=== PATIENT | male | born 1965 | race Caucasian/White ===

== ENCOUNTER 2020-11-23 10:32 | Emergency (ER) | payer SELFPAY ==
[2020-11-23 10:34] VITALS: BP 133/82; PULSE 62; RESP 16; TEMP 36.8; O2SAT 95; BMI 28.3
--- NOTE | 2020-11-23 10:44 | ECG_ITS ---
APPROVED REPORT Exam: Resting ECG HR:61 bpm ECG Measurements Heart Rate 61 AXES AR 128 P 52 QRSd 124 QRS -13 QT 420 T 48 QTc 422 Conclusion Normal sinus rhythm Right bundle branch block Abnormal ECG Electronically signed by : Nelson Marvin, 11/23/2020 22:09:03
--- NOTE | 2020-11-23 10:58 | XR_ITS ---
PROCEDURE: XR CHEST PORTABLE CLINICAL HISTORY: chest pain COMPARISON: No exams were available for comparison FINDINGS: Median sternotomy and mediastinal clips are noted. Aortic valve replacement. The cardiomediastinal silhouette and pulmonary vascularity are within normal limits. Background of minor chronic interstitial changes are noted. No lobar consolidation, pleural effusions or pneumothorax. No acute bony abnormalities. IMPRESSION: Status post CABG. Bilateral minor chronic interstitial changes. Dictated by: Lor Huitron 11/23/2020 11:45 Lor Huitron in OV 11/23/2020 11:45
[2020-11-23 11:05] LABS: Basophils % 0.6 % (0.1-2.0); Chloride 104 mmol/L (98-107); Eosinophils # 0.1 K/mm3 (0.0-0.4); Eosinophils % 1.6 % (0.1-12.0); Hematocrit 44.8 % (42.0-52.0); Hemoglobin 15.5 g/dL (14.1-18.0); Lymphocytes # 2.3 K/mm3 (0.7-4.5); Lymphocytes % 34.2 % (10-50); Mean Corpuscular HGB Conc 34.7 g/dL (31.8-35.4); Mean Corpuscular Hemoglobin 28.6 pg (27.0-31.2); Mean Corpuscular Volume 82.6 fl (80-94); Mean Platelet Volume 8.6 fl (7.4-10.4); Monocytes # 0.4 K/mm3 (0.1-1.0); Monocytes % 5.8 % (1.7-9.3); Neutrophils # 3.9 K/mm3 (1.8-7.8); Neutrophils % 57.7 % (37.0-80.0); Platelet Count 153 K/mm3 (142-424); Red Blood Count 5.42 M/mm3 (4.60-6.20); Red Cell Distribution Width 13.8 % (11.5-17.5); Sodium 140 mmol/L (136-145); White Blood Count 6.7 K/mm3 (4.8-10.8)
[2020-11-23 11:06] LABS: Potassium 4.3 mmoL/L (3.5-5.1)
[2020-11-23 11:08] LABS: Anion Gap 12.3 mEq/L (5-15); Blood Urea Nitrogen 14 mg/dl (9-20); Calcium 9.3 mg/dl (8.4-10.2); Carbon Dioxide 28 mmol/L (22.0-30.0); Creatinine Clearance Estimated 122 mL/min (50-200); Estimated Glomerular Filt Rate 117 ml/min (>60); GFR (African American) 142 ML/MIN (>60); Glucose 93 mg/dl (74-100)
--- NOTE | 2020-11-23 11:16 | CA_ITS ---
APPROVED REPORT EXAM: Comprehensive 2D, Doppler, and color-flow Echocardiogram Automated Logistics Specialist: Dodie Nguyen, RCS, RVS Ht: 5 ft 3 in Wt: 160lbs BSA: 1.76 BP: 122/80 mmHg Indications: Palpitations, cp-1 week ago, Hx-OHS- MVReplacement Boyd 27mm, TV medtronic ring -2014 2D Dimensions IVSd 0.98 cm LVEF (Visual) 63.00 % PWd 1.15 cm LA Volume 64.70 mL LVDd 4.56 cm LA Volume Index 36.80 mL/m2 (M/F) 16-34 LVDs 3.01 cm Left Atrium 3.80 cm LVOT 1.78 cm (M/F) 1.5-2.5 M-Mode Dimensions LA Diam 3.56 cm (1.9-4.0) Ao Diam 3.42 cm (2.0-3.7) TAPSE 1.75 (<1.7) LV Diastology E Decel Time 310.00 (160-240 msec) E/A Ratio 1.55 MED E' 7.30 (< 7 cm/sec) MED A' 5.70 cm/s E'/MED E' Ratio 24.93 (>14) LAT E' 8.40 (<10 cm/sec) LAT A' 5.80 cm/s E/LAT E' Ratio 21.67 (>14) Pulm Vein s 49.00 cm/sec Aortic Valve LVOT Max 130.00 (70-110 cm/s) LVOT VTI 26.81 cm AoV Peak Ghassan. 147.00 (50-130 cm/s) AO Peak GR. 8.60 mmHg AO Mean GR. 4.30 (<5 mmHg) AO VTI 34.44 (18-25 cm) NIKKI (VTI) 1.94 (2.5-4.5 cm2) Mitral Valve MV A Velocity 117.00 (40-130 cm/s) E/A Ratio 1.55 MV Decel. Time 310.00 (160-240 ms) Pulmonary Valve PV Peak Velocity 70.00 (50-150 cm/s) DC End VMAX 161.00 cm/s Tricuspid Valve TR P. Velocity 164.00 cm/s RAP Estimate 10.00 mmHg RVSP 20.70 mmHg Left Ventricle Left atrium is mildly enlarged, left ventricle is normal size, visually estimated ejection fraction 55% with no regional wall motion abnormality. Diastolic parameters are inconclusive. Right Ventricle Right atrium and right ventricle mildly enlarged with normal contractility. Aortic Valve Aortic valve is minimally thickened and fibrosed, there is no aortic stenosis or aortic insufficiency. Mitral Valve There is bioprosthetic valve noted in the mitral position, the valve is well-seated, there is no mitral regurgitation, the mean gradient across valve is 3.9 mmHg, pressure half-time was not obtained in this study. Tricuspid Valve There is tricuspid annuloplasty ring present in the tricuspid position, there is no tricuspid inflow obstruction or tricuspid regurgitation. Pulmonic Valve Pulmonic valve is poorly visualized. Great Vessels Aortic root is normal size. Pericardium No significant pericardial effusion noted. Conclusion 1. Biatrial enlargement, normal left ventricular size, visually estimated ejection fraction 55% with no regional wall motion abnormality, diastolic parameters are inconclusive. 2. Bioprosthetic valve in the mitral position valve is well-seated, there is no significant mitral regurgitation, mean gradient across valve is 3.9 mmHg, pressure half-time was not recorded in the study to calculate valve area. 3. Normal functioning tricuspid annuloplasty ring. 4. No significant pericardial effusion noted. Electronically signed by : Gustavo Combs, 11/23/2020 22:04:24
--- NOTE | 2020-11-23 11:25 | HMH.EDGENADL ---
ED Disposition Clinical Impression: Weakness Disposition: Home, Self-Care Condition on Discharge: Good Referrals: Provider,Referral, MD [Primary Care Provider] - - Critical Care Critical Care Time: No Attestation: On , the high probability of a clinically significant, sudden or life threatening deterioration of the following system(s) required my full and direct attention, intervention and personal management. The time I documented below is in addition to time spent performing reported procedures but includes the following listed in this critical care notation. Medical Decision Making - Medical Records Medical records reviewed: Yes: I reviewed the patient's medical records. - Mohamud Inquiry Pt receiving controlled substance: No Vital Signs: 11/23/20 10:34 11/23/20 11:43 Temperature 98.3 F Temperature Source Oral Pulse Rate 64 Pulse Rate [Left] 62 Respiratory Rate 16 Blood Pressure 122/80 Blood Pressure [Right Arm] 133/82 Blood Pressure Mean 86 Blood Pressure Mean [Right Arm] 99 Blood Pressure Source [Right Arm] Automatic Cuff 02 Sat by Pulse Oximetry 95 96 Oxygen Delivery Method Room Air - Lab Data Lab Results 11/23/20 10:50: WBC 6.7, RBC 5.42, Hgb 15.5, Hct 44.8, MCV 82.6, MCH 28.6, MCHC 34.7, RDW 13.8, Plt Count 153, MPV 8.6, Neut % (Auto) 57.7, Lymph % (Auto) 34.2, [place] % (Auto) 5.8, Eos % (Auto) 1.6, Baso % (Auto) 0.6, Neut # (Auto) 3.9, Lymph # (Auto) 2.3, [place] # (Auto) 0.4, Eos # (Auto) 0.1, Baso # (Auto) 0.0 11/23/20 10:50: Sodium 140, Potassium 4.3, Chloride 104, Carbon Dioxide 28, Anion Gap 12.3, BUN 14, Creatinine 0.70, Estimated Creat Clear 122, Estimated GFR 117, Est GFR ( Amer) 142, Glucose 93, Calcium 9.3, Troponin I < 0.01 Result diagrams: 11/23/20 10:50 11/23/20 10:50 Orders (Tests/Meds): ORDERS Category Date Time Status C-Reactive Protein Stat Lab 11/23/20 14:06 Received Erythrocyte Sedimentation Rate Stat Lab 11/23/20 10:50 Received Troponin I Q3H Lab 11/23/20 14:00 Received Troponin I Q3H Lab 11/23/20 17:00 Ordered Blood Culture Stat Micro 11/23/20 14:19 Received Medical Decision Narrative: Patient to the ED today for further evaluation of vague symptoms of weakness. Differential diagnosis includes valve failure, ACS, pneumonia, electrolyte normality, dehydration, anemia. Patient is well-appearing on examination in no acute distress with stable vital signs, takes many herbal supplements the names of which she is not able to give most of. Takes metoprolol and aspirin regularly. Will order CBC, CMP, troponin, chest x-ray for further evaluation of differential above. I will also have our cardiac cath lab radiology technologist perform echocardiography as he could be having mitral regurg or mitral stenosis which could be contributing to his symptoms. Echo has been performed, will have cardiology assess prior to discharge, patient needs more follow-up and he has, as he follows with a PCP up in [place], has not seen them in over a year. Patient has requested to be followed up by a reservations sales agent, we are not able to arrange this for him, but he has a friend contact who he will arrange follow-up with. Spoke with cardiology regarding patient's echo does not have any significant or obvious mitral regurgitation or stenosis. Commended obtaining a CRP and ESR, and blood cultures, which they will follow up in clinic which we will schedule later this week. We have scheduled patient for appointment in cardiology clinic, given instructions on how to arrive to this appointment, patient instructed to return to ED with any new or worsening symptoms including worsening fevers, weakness, chest pain. Is not currently having any chest pain, EKG is without evidence of ischemia. General Adult HPI - General Chief complaint: Chest Pain Stated complaint: fatigue, head pressure Time Seen by Provider: 11/23/20 11:15 Mode of Arrival: Ambulatory Limitations: No Limitations Description of Sy
[2020-11-23 11:27] LABS: Troponin I < 0.01 ng/ml (0.00-0.034)
[2020-11-23 11:43] VITALS: BP 122/80; PULSE 64; O2SAT 96
--- NOTE | 2020-11-23 11:51 | PC.NURSE ---
technical sales manager in room with patient at this time
--- NOTE | 2020-11-23 11:58 | PC.NURSE ---
pt getting echo at this time
--- NOTE | 2020-11-23 12:47 | PC.NURSE ---
notified cardiology office of consult on pt requested per ER . staff states they will notify antolin bassett of consult on pt
--- NOTE | 2020-11-23 13:34 | INFXCTL.NOTE ---
spoke with MAJOR Mcclendon with cardiology and she stated that she has some patients that still need to be seen in clinic today and she will be over to the ED to consult on patient once she finishes.
--- NOTE | 2020-11-23 14:39 | PC.NURSE ---
Spoke with Dr. Melvin Cardiology office and scheduled patient appointment. Patient has upcoming appt on monday at [address] MARTINS
--- NOTE | 2020-11-23 14:41 | PC.NURSE ---
pt sitting up in bed eating at this time
[2020-11-23 14:45] LABS: Troponin I < 0.01 ng/ml (0.00-0.034)
[2020-11-23 15:12] LABS: Erythrocyte Sedimentation Rate 9 mm/hr (0-20)
[2020-11-23 15:20] VITALS: BP 111/76; PULSE 60; RESP 18; TEMP 36.8; O2SAT 95
[2020-11-23 15:40] LABS: C-Reactive Protein 2.5 mg/L (0-4)
== END 2020-11-23 15:20 | disposition home or self-care (01) ==
PROVIDERS: Emergency Provider Student in an Organized Health Care Education/Training Program
DX: R07.9 Chest pain, unspecified (principal); R53.1 Weakness; K21.9 Gastro-esophageal reflux disease without esophagitis; Z95.2 Presence of prosthetic heart valve
CPT/HCPCS: 36415; 71045; 80048; 84484; 85025; 85651; 86140; 87040; 87077; 87186; 93005; 93306; 99283

== ENCOUNTER → 2021-01-08 11:59 | Outpatient (CLI) | payer SELFPAY ==
[2021-01-08 13:11] LABS: NT Pro Brain Natriuretic Pep. 240 pg/mL (0-125)
== END ==
PROVIDERS: Urology; Visit Provider Internal Medicine Cardiovascular Disease
DX: R06.09 Other forms of dyspnea (principal)
CPT/HCPCS: 36415; 83880

== ENCOUNTER → 2021-01-28 12:44 | Outpatient (CLI) | payer SELFPAY ==
[2021-01-28 13:41] LABS: Chloride 102 mmol/L (98-107)
[2021-01-28 13:42] LABS: Potassium 5.5 mmoL/L (3.5-5.1); Sodium 139 mmol/L (136-145)
[2021-01-28 13:44] LABS: Blood Urea Nitrogen 16 mg/dl (9-20); Estimated Glomerular Filt Rate 117 ml/min (>60); GFR (African American) 142 ML/MIN (>60)
[2021-01-28 13:45] LABS: Anion Gap 13.5 mEq/L (5-15); Calcium 9.6 mg/dl (8.4-10.2); Carbon Dioxide 29 mmol/L (22.0-30.0); Glucose 88 mg/dl (74-100)
== END ==
PROVIDERS: Visit Provider Internal Medicine Cardiovascular Disease
DX: K21.9 Gastro-esophageal reflux disease without esophagitis (principal); Z95.2 Presence of prosthetic heart valve; Z98.890 Other specified postprocedural states
CPT/HCPCS: 36415; 80048

== ENCOUNTER → 2021-07-05 10:34 | Outpatient (CLI) | payer SELFPAY ==
--- NOTE | 2021-07-05 | CA_ITS ---
APPROVED REPORT EXAM: Comprehensive 2D, Doppler, and color-flow Echocardiogram Florist: Serenity Daniel RT(R) Ht: 5 ft 3 in Wt: 161lbs BSA: 1.76 BP: 124/75 mmHg Indications: Murmur, HTN, hyperlipidemia, SWENSON, TVR( medtronic ring ) 2014, MVR 2014 (melgoza 27mm) 2D Dimensions LVOT 1.73 cm (M/F) 1.5-2.5 LVEF (Bhatti's) 53.00 % M: 52 - 72 LV Volume 80.80 mL M: 62 - 150 LV Volume Index 45.90 mL/m2 M: 34 - 74 M-Mode Dimensions RVDd 2.40 cm (0.9-2.6) LA Diam 4.10 cm (1.9-4.0) LVDd 4.57 cm (3.5-5.7) Ao Diam 2.49 cm (2.0-3.7) LVDs 3.47 cm (3.5-5.7) IVSd 0.77 cm (0.6-1.1) PWd 0.87 cm (0.6-1.1) EF (Teich) 48.10% FS 24.10% EDV (Teich) 95.90 mL ESV (Teich) 49.80 mL LV Diastology E Decel Time 297.00 (160-240 msec) E/A Ratio 1.0 MED E' 6.40 (< 7 cm/sec) E'/MED E' Ratio 17.80 (>14) LAT E' 7.40 (<10 cm/sec) E/LAT E' Ratio 15.39 (>14) Aortic Valve LVOT Max 104.00 (70-110 cm/s) LVOT VTI 22.39 cm AO VTI 52.84 (18-25 cm) Mitral Valve MV E Max Ghassan. 114.00 (40-130 cm/s) MV A Velocity 115.00 (40-130 cm/s) E/A Ratio 0.99 MV Decel. Time 297.00 (160-240 ms) MV PHT 87.00 ms Left Ventricle Left atrium is mildly enlarged, left ventricle is normal size, mild concentric left ventricular hypertrophy, visually estimated ejection fraction 55% with no regional wall motion abnormality, diastolic parameters are inconclusive. Right Ventricle Right atrium and right ventricle are mildly enlarged with normal contractility. Aortic Valve Aortic valve is minimally thickened and fibrosed, there is no aortic stenosis or significant aortic insufficiency. Mitral Valve Bioprosthetic valve noted in the mitral position valve is well-seated, the mean gradient across the valve is in acceptable range, there is no mitral inflow obstruction no mitral regurgitation. Tricuspid Valve Tricuspid valve has tricuspid annulus ring, there is no significant tricuspid inflow obstruction or tricuspid regurgitation. Pulmonic Valve Pulmonic valve is poorly visualized. Great Vessels Aortic root is normal size. Inferior vena cava is poorly visualized. Pericardium No significant pericardial effusion noted. Conclusion 1. Biatrial enlargement, normal left ventricular size, mild concentric left ventricular hypertrophy, visually estimated ejection fraction 55% with no regional wall motion abnormality, diastolic parameters are inconclusive. 2. Mildly enlarged right ventricle with normal contractility. 3. Normal functioning bioprosthetic valve in the mitral position 4. Normal functioning tricuspid valve ring in tricuspid position. 5. No significant pericardial effusion. 6. Inferior vena cava is poorly visualized. Electronically signed by : Gustavo Combs MD 07/05/2021 18:55:44
--- NOTE | 2021-07-05 | ECG_ITS ---
APPROVED REPORT Exam: Resting ECG HR:64 bpm ECG Measurements Heart Rate 64 AXES OR 132 P 35 QRSd 124 QRS -23 QT 416 T -2 QTc 425 Conclusion SINUS RHYTHM POSSIBLE RIGHT VENTRICULAR CONDUCTION DELAY [RSR (QR) IN V1/V2] ABNORMAL ECG UNCONFIRMED REPORT Electronically signed by : Nelson Marvin MD 07/09/2021 16:13:03
== END ==
PROVIDERS: Visit Provider Family Medicine
DX: I35.9 Nonrheumatic aortic valve disorder, unspecified (principal)
CPT/HCPCS: 93005; 93306

== ENCOUNTER 2021-10-28 11:43 | Inpatient (IN) | payer SELFPAY ==
[2021-10-28] VITALS (27 sets, daily range): BP systolic 96–157; BP diastolic 58–96; PULSE 62–128; RESP 16–26; TEMP 36.4–36.8; O2SAT 93–98; BMI 29.2; BMI 28.3
--- NOTE | 2021-10-28 11:43 | ECG_ITS ---
APPROVED REPORT Exam: Resting ECG HR:128 bpm ECG Measurements Heart Rate 128 AXES QRSd 112 QRS 3 QT 302 T 83 QTc 378 Conclusion ATRIAL FLUTTER/TACHYCARDIA WITH RAPID VENTRICULAR RESPONSE INCOMPLETE RIGHT BUNDLE BRANCH BLOCK [90+ ms QRS DURATION, TERMINAL R IN V1/V2, 40+ ms S IN I/aVL/V4/V5/V6] ST ELEVATION, PROBABLY EARLY REPOLARIZATION [ST ELEVATION WITH NORMALLY INFLECTED T-WAVE] MODERATE ST DEPRESSION [0.05+ mV ST DEPRESSION] ABNORMAL ECG UNCONFIRMED REPORT Electronically signed by : Nelson Marvin MD 10/29/2021 17:32:17
--- NOTE | 2021-10-28 11:48 | XR_ITS ---
FINAL REPORT CLINICAL HISTORY: palpitaions FINDINGS: A single portable view of the chest was obtained. There are postoperative changes from median sternotomy. The heart size and pulmonary vascularity are within normal limits. The mediastinum is within normal limits. No acute pulmonary abnormality is identified. The bony thorax is intact. IMPRESSION: No active cardiopulmonary disease. Reviewed, Interpreted and Dictated by Chino Christopher III, MD Transcribed by Karon Pelayo Authenticated and [facility]
--- NOTE | 2021-10-28 11:52 | HMH.EDCP ---
ED Disposition Clinical Impression: Chest discomfort Atrial flutter Qualifiers: Atrial flutter type: unspecified Qualified Code(s): I48.92 - Unspecified atrial flutter Disposition: Admitted as Observation Condition on Discharge: Good Referrals: Provider,Referral, [Primary Care Provider] - - Critical Care Critical Care Time: Yes Attestation: On , the high probability of a clinically significant, sudden or life threatening deterioration of the following system(s) required my full and direct attention, intervention and personal management. The time I documented below is in addition to time spent performing reported procedures but includes the following listed in this critical care notation. Vital system(s) involved:: Circulatory Failure My critical care processes included: Assessment & monitoring of V/S, Initial and Re-exams, Data Review/Interpretation, Coordinating Care, Medication Orders and management, Documentation Medical Decision Making - Medical Records Medical records reviewed: Yes: I reviewed the patient's medical records. - Mohamud Inquiry Pt receiving controlled substance: No Vital Signs: 10/28/21 11:46 10/28/21 12:04 10/28/21 12:07 Temperature 98.2 F Temperature Source Oral Pulse Rate 126 H 126 H Pulse Rate [Radial] 128 H Respiratory Rate 20 Blood Pressure 116/96 H 127/89 Blood Pressure [Right Arm] 136/94 H Blood Pressure Mean [Right Arm] 108 Blood Pressure Source Automatic Cuff Blood Pressure Position Sitting Blood Pressure Position [Right Arm] Sitting 02 Sat by Pulse Oximetry 98 94 L Oxygen Delivery Method Room Air Room Air 10/28/21 12:16 10/28/21 12:20 10/28/21 12:23 Temperature Temperature Source Pulse Rate 123 H 80 124 H Pulse Rate [Radial] Respiratory Rate 24 Blood Pressure 117/88 106/74 L 110/88 Blood Pressure [Right Arm] Blood Pressure Mean [Right Arm] Blood Pressure Source Blood Pressure Position Sitting Sitting Sitting Blood Pressure Position [Right Arm] 02 Sat by Pulse Oximetry Oxygen Delivery Method 10/28/21 12:27 Temperature Temperature Source Pulse Rate 90 Pulse Rate [Radial] Respiratory Rate Blood Pressure 100/73 L Blood Pressure [Right Arm] Blood Pressure Mean [Right Arm] Blood Pressure Source Blood Pressure Position Sitting Blood Pressure Position [Right Arm] 02 Sat by Pulse Oximetry Oxygen Delivery Method - Lab Data Lab Results 10/28/21 11:47: WBC 7.7, RBC 5.79, Hgb 16.6, Hct 47.2, MCV 81.6, MCH 28.7, MCHC 35.2, RDW 12.7, Plt Count 189, MPV 9.0, Neut % (Auto) 56.1, Lymph % (Auto) 34.5, [place] % (Auto) 7.8, Eos % (Auto) 1.2, Baso % (Auto) 0.5, Neut # (Auto) 4.3, Lymph # (Auto) 2.7, [place] # (Auto) 0.6, Eos # (Auto) 0.1, Baso # (Auto) 0.0 10/28/21 11:47: Sodium 138, Potassium 4.6, Chloride 102, Carbon Dioxide 29, Anion Gap 11.6, BUN 12, Creatinine 0.70, Estimated Creat Clear 125, Estimated GFR 117, Est GFR ( Amer) 141, Glucose 99, Calcium 9.4, Total Bilirubin 0.4, AST 45, ALT 26, Alkaline Phosphatase 55, Troponin I < 0.01, Total Protein 7.9, Albumin 4.4, Globulin 3.5 H, Albumin/Globulin Ratio 1.3 10/28/21 11:54: Sodium 138, Potassium 4.6, Chloride 102, Carbon Dioxide 30, Anion Gap 10.6, BUN 12, Creatinine 0.70, Estimated Creat Clear 125, Estimated GFR 117, Est GFR ( Amer) 141, Glucose 99, Calcium 9.3, Total Bilirubin 0.4, Direct Bilirubin 0.0, Conjugated Bilirubin 0.0, Indirect Bilirubin 0.4, Unconjugated Bilirubin 0.7, AST 42, ALT 24, Alkaline Phosphatase 53, Total Protein 7.8, Albumin 4.3 Result diagrams: 10/28/21 11:47 10/28/21 11:54 Orders (Tests/Meds): ED MEDICATIONS Generic Name Dose Route Start Last Admin Trade Name Freq PRN Reason Stop Dose Admin Diltiazem HCl 100 mg/ Sodium 100 mls @ 5 mls/hr 10/28/21 12:45 10/28/21 12:30 Chloride IV 11/27/21 12:44 5 mls/hr .Q20H TRACEY Administration Protocol Discontinued Medications Generic Name Dose Route Start La
[2021-10-28 12:06] LABS: Alanine Aminotransferase 24 U/L (12-78); Albumin Level 4.3 g/dl (3.5-5.0); Alkaline Phosphatase 53 U/L (38-126); Anion Gap 10.6 mEq/L (5-15); Aspartate Amino Transferase 42 U/L (17-59); Bilirubin,Indirect 0.4 mg/dL (0.0-0.9); Bilirubin,Total 0.4 mg/dl (0.2-1.3); Bilirubin,Unconjugated 0.7 mg/dL (0.0-1.1); Blood Urea Nitrogen 12 mg/dl (9-20); Calcium 9.3 mg/dl (8.4-10.2); Carbon Dioxide 30 mmol/L (22.0-30.0); Chloride 102 mmol/L (98-107); Creatinine Clearance Estimated 125 mL/min (50-200); Estimated Glomerular Filt Rate 117 ml/min (>60); GFR (African American) 141 ML/MIN (>60); Glucose 99 mg/dl (74-100); Potassium 4.6 mmoL/L (3.5-5.1); Sodium 138 mmol/L (136-145); Total Protein,Serum 7.8 g/dl (6.3-8.2)
[2021-10-28 12:07] LABS: Alanine Aminotransferase 26 U/L (12-78); Albumin Level 4.4 g/dl (3.5-5.0); Albumin/Globulin Ratio 1.3 (1.1-1.8); Alkaline Phosphatase 55 U/L (38-126); Anion Gap 11.6 mEq/L (5-15); Aspartate Amino Transferase 45 U/L (17-59); Bilirubin,Total 0.4 mg/dl (0.2-1.3); Blood Urea Nitrogen 12 mg/dl (9-20); Calcium 9.4 mg/dl (8.4-10.2); Carbon Dioxide 29 mmol/L (22.0-30.0); Chloride 102 mmol/L (98-107); Creatinine Clearance Estimated 125 mL/min (50-200); Estimated Glomerular Filt Rate 117 ml/min (>60); GFR (African American) 141 ML/MIN (>60); Globulin 3.5 g/dL (1.3-3.2); Glucose 99 mg/dl (74-100); Potassium 4.6 mmoL/L (3.5-5.1); Sodium 138 mmol/L (136-145); Total Protein,Serum 7.9 g/dl (6.3-8.2)
[2021-10-28 12:22] LABS: Troponin I < 0.01 ng/ml (0.00-0.034)
[2021-10-28 12:23] LABS: Basophils % 0.5 % (0.1-2.0); Eosinophils # 0.1 K/mm3 (0.0-0.4); Eosinophils % 1.2 % (0.1-12.0); Hematocrit 47.2 % (42.0-52.0); Hemoglobin 16.6 g/dL (14.1-18.0); Lymphocytes # 2.7 K/mm3 (0.7-4.5); Lymphocytes % 34.5 % (10-50); Mean Corpuscular HGB Conc 35.2 g/dL (31.8-35.4); Mean Corpuscular Hemoglobin 28.7 pg (27.0-31.2); Mean Corpuscular Volume 81.6 fl (80-94); Monocytes # 0.6 K/mm3 (0.1-1.0); Monocytes % 7.8 % (1.7-9.3); Neutrophils # 4.3 K/mm3 (1.8-7.8); Neutrophils % 56.1 % (37.0-80.0); Platelet Count 189 K/mm3 (142-424); Red Blood Count 5.79 M/mm3 (4.60-6.20); Red Cell Distribution Width 12.7 % (11.5-17.5); White Blood Count 7.7 K/mm3 (4.8-10.8)
--- NOTE | 2021-10-28 13:19 | ECG_ITS ---
APPROVED REPORT Exam: Resting ECG HR:82 bpm ECG Measurements Heart Rate 82 AXES QRSd 108 QRS 33 QT 433 T 30 QTc 471 Conclusion ATRIAL FLUTTER/TACHYCARDIA INCOMPLETE RIGHT BUNDLE BRANCH BLOCK [90+ ms QRS DURATION, TERMINAL R IN V1/V2, 40+ ms S IN I/aVL/V4/V5/V6] NONSPECIFIC T-WAVE ABNORMALITY PROLONGED QT INTERVAL ABNORMAL ECG UNCONFIRMED REPORT Electronically signed by : Nelson Marvin MD 10/29/2021 17:32:03
--- NOTE | 2021-10-28 13:20 | PC.NURSE ---
Dr. Vizcarra speaking with Danelle Fox APRN on phone
--- NOTE | 2021-10-28 13:23 | PC.NURSE ---
DR QUINONES PAGED AT THIS TIME
--- NOTE | 2021-10-28 13:24 | PC.NURSE ---
Danelle Fox APRN at speaking with patient and family
--- NOTE | 2021-10-28 13:24 | PC.NURSE ---
NINA CORLEY SPEAKING WITH DR QUINONES
--- NOTE | 2021-10-28 13:27 | PC.NURSE ---
CARE MANAGEMENT PAGED FOR ADMISSION
[2021-10-28 13:28] LABS: Coronavirus 19, PCR Not Detected (NotDetected); Influenza A, PCR Not Detected (NotDetected); Influenza B, PCR Not Detected (NotDetected)
--- NOTE | 2021-10-28 13:29 | PC.NURSE ---
CANDY FROM CARE MANAGEMENT NOTIFIED OF ADMISSION
--- NOTE | 2021-10-28 13:38 | HMH.CNCARD ---
History of Present Illness Consult date: 10/28/21 Requesting physician: Mike Vizcarra Consult reason: atrial fibrillation Chief complaint: racing of the heart History of present illness: This is a 56-year-old white gentleman who presented to the emergency department with a 2-day history of racing of the heart. 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 He states that this persisted for 2 days prior to coming into the emergency department. The racing of the heart was associated with some chest discomfort and shortness of breath. He also noted some dizziness. The patient states that this got severe and would just not go away and that is why he came into the emergency department. He does have a history of a mitral valve replacement and a tricuspid valve repair. He was following in our cardiology clinic but then was in for [place] visiting family and he saw a carbon setter there and has been seeing them remotely since that time. He states that his metoprolol dose was cut in half a few weeks ago. He denies any lower extremity edema. He denies any fever, chills, nausea, vomiting, diarrhea, PND or orthopnea. [facility] History I have reviewed the patient's past medical history: Yes Medical History: Reports:: Heart Murmur, Myocardial Infarction, Valvular Heart Disease *Have you ever received a pneumonia vaccine?: No *Have you received a flu vaccine this season?: No Other Surgeries: Yes: Cardiac Catheterization, Cardiac Surgery - *Social History Smoking Status: Former smoker Alcohol Intake: never Substance Use Type: denies use *Occupational Status:: employed, disabled *Travel in the last 8 weeks: None Family Hx:: Coronary Artery Disease Meds Home Medications Medication Instructions Recorded Confirmed Type aspirin 81 mg tablet,delayed 81 mg PO DAILY 11/27/20 10/28/21 History release metoprolol succinate 25 mg 25 mg PO DAILY 11/27/20 10/28/21 History tablet,extended release 24 hr Allergies Allergy/AdvReac Type Severity Reaction Status Date / Time isosorbide AdvReac Verified 01/21/21 13:47 Exam Vital signs and Labs for Last 24 Hours: Temp Pulse Resp BP Pulse Ox 98.2 F 90 24 100/73 L 94 L 10/28/21 11:46 10/28/21 12:27 10/28/21 12:16 10/28/21 12:27 10/28/21 12:04 Laboratory Results - last 24 hr 10/28/21 11:47: WBC 7.7, RBC 5.79, Hgb 16.6, Hct 47.2, MCV 81.6, MCH 28.7, MCHC 35.2, RDW 12.7, Plt Count 189, MPV 9.0, Neut % (Auto) 56.1, Lymph % (Auto) 34.5, [place] % (Auto) 7.8, Eos % (Auto) 1.2, Baso % (Auto) 0.5, Neut # (Auto) 4.3, Lymph # (Auto) 2.7, [place] # (Auto) 0.6, Eos # (Auto) 0.1, Baso # (Auto) 0.0 10/28/21 11:47: Sodium 138, Potassium 4.6, Chloride 102, Carbon Dioxide 29, Anion Gap 11.6, BUN 12, Creatinine 0.70, Estimated Creat Clear 125, Estimated GFR 117, Est GFR ( Amer) 141, Glucose 99, Calcium 9.4, Total Bilirubin 0.4, AST 45, ALT 26, Alkaline Phosphatase 55, Troponin I < 0.01, Total Protein 7.9, Albumin 4.4, Globulin 3.5 H, Albumin/Globulin Ratio 1.3 10/28/21 11:54: Sodium 138, Potassium 4.6, Chloride 102, Carbon Dioxide 30, Anion Gap 10.6, BUN 12, Creatinine 0.70, Estimated Creat Clear 125, Estimated GFR 117, Est GFR ( Amer) 141, Glucose 99, Calcium 9.3, Total Bilirubin 0.4, Direct Bilirubin 0.0, Conjugated Bilirubin 0.0, Indirect Bilirubin 0.4, Unconjugated Bilirubin 0.7, AST 42, ALT 24, Alkaline Phosphatase 53, Total Protein 7.8, Albumin 4.3 I & O for Last 24 hours: Intake & Output 10/25/21 10/26/21 10/27/21 10/28/21 23:59 23:59 23:59 23:59 Weight 165 lb Narrative: EKG shows atrial flutter with a rate of [address] and T wave abnormalities. - Constitutional no acute distress, average body habitus - *Routine HEENT Exam Head: Present: normocephalic, atraumatic Eye: Present: EOMI, PERRL ENT: Present: mucous membranes moist - *Routine Neck Exam
--- NOTE | 2021-10-28 13:42 | PC.NURSE ---
pt sitting up eating lunch tray; family at BS
--- NOTE | 2021-10-28 14:00 | PC.NURSE ---
pt given diet tray
--- NOTE | 2021-10-28 14:27 | PC.NURSE ---
attempted to call report. no answer
--- NOTE | 2021-10-28 14:34 | PC.NURSE ---
report given to eun reddy
--- NOTE | 2021-10-28 14:46 | PC.NURSE ---
Pt arrived to the floor at this time
--- NOTE | 2021-10-28 14:52 | CA_ITS ---
APPROVED REPORT EXAM: Comprehensive 2D, Doppler, and color-flow Echocardiogram Line Installation Supervisor: Jaida Maier RVT Ht: 5 ft 3 in Wt: 165lbs BSA: 1.78 BP: 100/73 mmHg Indications: AFLUTTER,PALPS,SOA,EX SMOKER,TRICUPSID RING,BIOPROSTHETIC MV 2D Dimensions LVOT 2.02 cm (M/F) 1.5-2.5 LA Volume 39.50 mL LA Volume Index 22.19 mL/m2 (M/F) 16-34 M-Mode Dimensions RVDd 2.01 cm (0.9-2.6) LA Diam 3.75 cm (1.9-4.0) LVDd 5.19 cm (3.5-5.7) Ao Diam 3.19 cm (2.0-3.7) LVDs 3.78 cm (3.5-5.7) IVSd 1.45 cm (0.6-1.1) PWd 1.13 cm (0.6-1.1) EF (Teich) 52.50% FS 27.20% EDV (Teich) 128.90 mL TAPSE 0.81 (<1.7) ESV (Teich) 61.20 mL LV Diastology E Decel Time 150.00 (160-240 msec) E/A Ratio 1.3 MED E' 12.20 (< 7 cm/sec) E'/MED E' Ratio 14.34 (>14) LAT E' 10.70 (<10 cm/sec) E/LAT E' Ratio 16.36 (>14) Aortic Valve AO Peak GR. 5.30 mmHg AO VTI 46.88 (18-25 cm) Mitral Valve MV E Max Ghassan. 175.00 (40-130 cm/s) MV A Velocity 134.00 (40-130 cm/s) E/A Ratio 1.30 MV Decel. Time 150.00 (160-240 ms) MV PHT 44.00 ms Pulmonary Valve PV Peak Velocity 69.00 (50-150 cm/s) Tricuspid Valve TR P. Velocity 243.00 cm/s RAP Estimate 10.00 mmHg RVSP 33.60 mmHg Left Ventricle Left atrium is mildly enlarged, left ventricle is normal size estimated ejection fraction 50% with no regional wall motion abnormality, diastolic parameters are inconclusive. Right Ventricle Right atrium and right ventricle are mildly enlarged with normal contractility. Aortic Valve Aortic valve is thickened and calcified without aortic stenosis aortic insufficiency. Mitral Valve There is a bioprosthetic valve noted in the mitral position, the valve is well-seated, the mitral inflow velocity is 2 m/s with a mean gradient across the valve is 5 mmHg, pressure half-time is not indicative of any significant mitral inflow obstruction. There is no significant mitral regurgitation seen. Tricuspid Valve There is tricuspid annular ring seen, tricuspid inflow velocities not recorded, there does not appear to be significant tricuspid inflow obstruction. There is no significant tricuspid regurgitation seen. Pulmonic Valve Pulmonic valve is poorly visualized. Great Vessels Aortic root is normal size. Inferior vena cava is normal size with normal inspiratory collapse. Pericardium No significant pericardial effusion noted. Conclusion 1. Mild biatrial enlargement, normal left ventricular size, estimated ejection fraction 55% with no regional wall motion abnormality, diastolic parameters are inconclusive. 2. Bioprosthetic mitral valve, Doppler is not indicated of a significant mitral inflow obstruction or mitral regurgitation. 3. No significant pericardial effusion noted. 4. Inferior vena cava normal size with normal inspiratory collapse. Electronically signed by : Gustavo Combs MD 10/29/2021 14:49:36
[2021-10-28 16:42] LABS: Troponin I < 0.01 ng/ml (0.00-0.034)
--- NOTE | 2021-10-28 17:36 | PC.NURSE ---
1730- HR 125-130, cardizem drip increased to 10mg/hr at this time
--- NOTE | 2021-10-28 18:12 | PC.NURSE ---
pt A&OX4. heart rhythm continues to be in atrial flutter. cardizem drip running at 10 mg per hour. pt needs assistance with ambulating due to dizziness. is at bedside. call light in reach, bed in low position and wheels locked.
[2021-10-28 18:53] LABS: Troponin I < 0.01 ng/ml (0.00-0.034)
--- NOTE | 2021-10-28 20:18 | PC.NURSE ---
pt's HR in 60-70's, decreased drip to 5mg
[2021-10-29] VITALS (12 sets, daily range): BP systolic 88–112; BP diastolic 55–70; PULSE 62–104; RESP 10–20; TEMP 36.6–36.7; O2SAT 92–97; BMI 28.8
[2021-10-29 06:07] LABS: Basophils # 0.1 K/mm3 (0-0.2); Basophils % 1.2 % (0.1-2.0); Eosinophils # 0.1 K/mm3 (0.0-0.4); Eosinophils % 2.1 % (0.1-12.0); Hematocrit 48.3 % (42.0-52.0); Hemoglobin 15.8 g/dL (14.1-18.0); Lymphocytes # 2.3 K/mm3 (0.7-4.5); Lymphocytes % 38.6 % (10-50); Mean Corpuscular HGB Conc 32.7 g/dL (31.8-35.4); Mean Corpuscular Hemoglobin 28.7 pg (27.0-31.2); Mean Corpuscular Volume 87.8 fl (80-94); Mean Platelet Volume 9.6 fl (7.4-10.4); Monocytes # 0.5 K/mm3 (0.1-1.0); Monocytes % 7.6 % (1.7-9.3); Neutrophils % 50.5 % (37.0-80.0); Platelet Count 180 K/mm3 (142-424); Red Cell Distribution Width 13.6 % (11.5-17.5); White Blood Count 5.9 K/mm3 (4.8-10.8)
[2021-10-29 06:08] LABS: Chloride 106 mmol/L (98-107); Potassium 4.6 mmoL/L (3.5-5.1); Sodium 138 mmol/L (136-145)
[2021-10-29 06:10] LABS: Alanine Aminotransferase 22 U/L (12-78); Alkaline Phosphatase 45 U/L (38-126); Aspartate Amino Transferase 28 U/L (17-59); Bilirubin,Indirect 0.6 mg/dL (0.0-0.9); Bilirubin,Total 0.6 mg/dl (0.2-1.3); Bilirubin,Unconjugated 0.6 mg/dL (0.0-1.1); Cholesterol 213 mg/dl (140-200); Triglycerides 156 mg/dl (30-150); VLDL Cholesterol 31 mg/dL (0-40)
[2021-10-29 06:11] LABS: Albumin Level 3.7 g/dl (3.5-5.0); Anion Gap 8.6 mEq/L (5-15); Blood Urea Nitrogen 13 mg/dl (9-20); Calcium 8.8 mg/dl (8.4-10.2); Carbon Dioxide 28 mmol/L (22.0-30.0); Chol/HDL Ratio 5.9 (1-3.5); Creatinine Clearance Estimated 108 mL/min (50-200); Estimated Glomerular Filt Rate 100 ml/min (>60); GFR (African American) 121 ML/MIN (>60); Glucose 122 mg/dl (74-100); HDL Cholesterol 36 mg/dl (40-60); Total Protein,Serum 6.6 g/dl (6.3-8.2)
[2021-10-29 06:22] LABS: Direct LDL Cholesterol 129.56 mg/dL (100-129)
--- NOTE | 2021-10-29 07:36 | P.CONPHA_ITS ---
[facility] Pharmacy VTE Monitoring - Patient Demographics Admission date: 10/29/21 Report Date: 10/29/21 Time: 07:36 Allergies/Adverse Reactions: Patient Allergies isosorbide Adverse Reaction (Verified 01/21/21 13:47) Height: 1.6 m Weight: 73.799 kg Patient Problems: Current Active Problems Atrial flutter (Acute) Chest discomfort (Acute) Atrial flutter with rapid ventricular response (Acute) Shortness of breath (Acute) S/P TVR (tricuspid valve repair) (Chronic) Hx of mitral valve replacement (Chronic) Gastroesophageal reflux disease (Chronic) - VTE Risk Labs: VTE Related Lab Results Hgb 15.8 g/dL (14.1-18.0) 10/29/21 05:36 Hct 48.3 % (42.0-52.0) 10/29/21 05:36 Plt Count 180 K/mm3 (142-424) 10/29/21 05:36 BUN 13 mg/dl (9-20) 10/29/21 05:36 Creatinine 0.80 mg/dl (0.66-1.25) 10/29/21 05:36 Estimated Creat Clear 108 mL/min (50-200) 10/29/21 05:36 Clinical Trial Participant: No - Prophylaxis VTE Prophylaxis Ordered?: Yes Types of VTE Prophylaxis: TEDS Knee High
--- NOTE | 2021-10-29 09:06 | PC.NURSE ---
Diltiazem 120 mg PO given at 9:04.
--- NOTE | 2021-10-29 09:10 | ECG_ITS ---
APPROVED REPORT Exam: Resting ECG HR:82 bpm ECG Measurements Heart Rate 82 AXES QRSd 121 QRS -26 QT 371 T -15 QTc 410 Conclusion ATRIAL FLUTTER/TACHYCARDIA POSSIBLE RIGHT VENTRICULAR CONDUCTION DELAY [RSR (QR) IN V1/V2] ABNORMAL ECG UNCONFIRMED REPORT Electronically signed by : Nelson Marvin MD 10/29/2021 17:29:10
--- NOTE | 2021-10-29 10:05 | PC.NURSE ---
Diltiazem 5 ml/hr IV discontinued at 1004.
--- NOTE | 2021-10-29 10:29 | HMH.PNCARD ---
Subjective Date: 10/29/21 Time: 09:00 Principal diagnosis: aflutter with RVR Interval history: This is a 56-year-old white gentleman who presented to the emergency department with a 2-day history of his heart racing. 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 Patient came into the ER yesterday and was found to be in atrial flutter with RVR. He has rate controlled with a diltiazem drip. He does remain in atrial flutter this morning with rate control. He denies any chest pain or pressure. He denies any shortness of breath or edema. He denies any fever, chills, nausea, vomiting, diarrhea, PND or orthopnea. Exam Vital signs and Labs for Last 24 Hours: Temp Pulse Resp BP Pulse Ox 98.0 F 74 12 101/64 L 95 10/29/21 08:00 10/29/21 09:58 10/29/21 09:58 10/29/21 09:58 10/29/21 09:58 Laboratory Results - last 24 hr 10/28/21 11:47: WBC 7.7, RBC 5.79, Hgb 16.6, Hct 47.2, MCV 81.6, MCH 28.7, MCHC 35.2, RDW 12.7, Plt Count 189, MPV 9.0, Neut % (Auto) 56.1, Lymph % (Auto) 34.5, [place] % (Auto) 7.8, Eos % (Auto) 1.2, Baso % (Auto) 0.5, Neut # (Auto) 4.3, Lymph # (Auto) 2.7, [place] # (Auto) 0.6, Eos # (Auto) 0.1, Baso # (Auto) 0.0 10/28/21 11:47: Sodium 138, Potassium 4.6, Chloride 102, Carbon Dioxide 29, Anion Gap 11.6, BUN 12, Creatinine 0.70, Estimated Creat Clear 125, Estimated GFR 117, Est GFR ( Amer) 141, Glucose 99, Calcium 9.4, Total Bilirubin 0.4, AST 45, ALT 26, Alkaline Phosphatase 55, Troponin I < 0.01, Total Protein 7.9, Albumin 4.4, Globulin 3.5 H, Albumin/Globulin Ratio 1.3 10/28/21 11:54: Sodium 138, Potassium 4.6, Chloride 102, Carbon Dioxide 30, Anion Gap 10.6, BUN 12, Creatinine 0.70, Estimated Creat Clear 125, Estimated GFR 117, Est GFR ( Amer) 141, Glucose 99, Calcium 9.3, Total Bilirubin 0.4, Direct Bilirubin 0.0, Conjugated Bilirubin 0.0, Indirect Bilirubin 0.4, Unconjugated Bilirubin 0.7, AST 42, ALT 24, Alkaline Phosphatase 53, Total Protein 7.8, Albumin 4.3 10/28/21 13:24: SARS-CoV-2 (PCR) Not detected, Influenza A Untype (PCR) Not detected, Influenza Type B (PCR) Not detected 10/28/21 15:17: Troponin I < 0.01 10/28/21 18:22: Troponin I < 0.01 10/29/21 05:36: Total Bilirubin 0.6, Direct Bilirubin 0.0, Conjugated Bilirubin 0.0, Indirect Bilirubin 0.6, Unconjugated Bilirubin 0.6, AST 28 D, ALT 22, Alkaline Phosphatase 45, Total Protein 6.6, Albumin 3.7 D, Triglycerides 156 H, Cholesterol 213 H, LDL Cholesterol Direct 129.56 H, VLDL Cholesterol 31, HDL Cholesterol 36 L, Cholesterol/HDL Ratio 5.9 H 10/29/21 05:36: WBC 5.9, RBC 5.50, Hgb 15.8, Hct 48.3, MCV 87.8, MCH 28.7, MCHC 32.7, RDW 13.6, Plt Count 180, MPV 9.6, Neut % (Auto) 50.5, Lymph % (Auto) 38.6, [place] % (Auto) 7.6, Eos % (Auto) 2.1, Baso % (Auto) 1.2, Neut # (Auto) 3.0, Lymph # (Auto) 2.3, [place] # (Auto) 0.5, Eos # (Auto) 0.1, Baso # (Auto) 0.1 10/29/21 05:36: Sodium 138, Potassium 4.6, Chloride 106, Carbon Dioxide 28, Anion Gap 8.6, BUN 13, Creatinine 0.80, Estimated Creat Clear 108, Estimated GFR 100, Est GFR ( Amer) 121, Glucose 122 H D, Calcium 8.8 I & O for Last 24 hours: Intake & Output 10/26/21 10/27/21 10/28/21 10/29/21 23:59 23:59 23:59 23:59 Intake Total 497 / 857 927 / 927 Output Total 700 / 700 Balance 497 / 607 227 / 227 Weight 160 lb 4 oz 162 lb 11.2 oz Narrative: Telemetry strip is atrial flutter with a rate of 80. - Constitutional no acute distress, average body habitus - *Routine HEENT Exam Head: Present: normocephalic, atraumatic Eye: Present: EOMI, PERRL ENT: Present: mucous membranes moist - *Routine Neck Exam Present: supple, full ROM, normal carotid upstroke. Absent: JVD, carotid bruit, lymphadenopathy - *Routine Respiratory Exam Present: CTA bilaterally - *Routine Cardiovascular Exam Present: RRR, Normal S1, Normal S2, murmur - *Routine Abdominal Exam Present: soft, normoactive bowel sounds. Absent: tenderne
[2021-10-29 11:51] LABS: INR 0.97 (0.9-1.1)
--- NOTE | 2021-10-29 12:01 | PC.NURSE ---
Yuan Wang RN Charge Nurse and myself rounded on patient at this time. Pt was seen by cardiology and cardioversion and ALVERTO procedures were discussed. Pt was concerned about the cost, contacted care management for assistance in getting these details for him. This information was brought to the bedside and presented to the patient. Pt questions answered appropriately. Pt agreed to procedure. Communicated with Danelle Fox APRN who relayed information to MD. Pt denies pain or any other needs at this time. Pt states he has no questions about medications at this time. Informed patient to call out if any questions/concerns arise.
--- NOTE | 2021-10-29 14:00 | PC.NURSE ---
MORNING ROUNDS DONE WITH MD. PATIENT EDUCATED ON DIAGNOSIS, AWAITING CARDIOLOGY CONSULT REMAINED ON CARDIZEM DRIP AT THAT TIME. FAMILY AT BEDSIDE. [id number] ASSISTED PATIENT WITH CALLING OUT ON PHONE. ALSO REEDUCATED ON GARCIA SHEET FOR PROCEDURE THAT INCLUDED MEDICATIONS. PHARMACY IN ROOM DISCUSSING OPTIONS TO MONITOR LABS AT A [facility]MADIN CLINIC. NO OTHER QUESTIONS OR REQUESTS AT THAT TIME.
--- NOTE | 2021-10-29 15:43 | HMH.HPDC ---
General - General Admission date:: 10/28/21 Discharge date: 10/29/21 *Admission Date: 10/29/21 *Chief complaint: Chest pain *History of present illness: 56-year-old male patient presented to the [facility] emergency department with complaints of elevated heart rate and chest pain for 2 days. 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 He also reports some dizziness but denies at present. He also has a mitral valve and tricuspid valve replacement in the past. 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 He denies fever/chills/body aches or nausea/vomiting/diarrhea [facility] History I have reviewed the patient's past medical history: Yes Medical History: Reports:: Heart Murmur, Myocardial Infarction, Valvular Heart Disease *Have you ever received a pneumonia vaccine?: No *Have you received a flu vaccine this season?: No Other Surgeries: Yes: Cardiac Catheterization, Cardiac Surgery, Other Valve Replacement - *Social History Smoking Status: Former smoker # Packs/Day (cigarettes): 1 Alcohol Intake: never Substance Use Type: denies use *Occupational Status:: other *Travel in the last 8 weeks: None Family Hx:: Coronary Artery Disease, Heart Attack Exam Vital signs and Labs for Last 24 Hours: Temp Pulse Resp BP Pulse Ox 97.9 F 80 13 96/65 L 94 L 10/29/21 11:17 10/29/21 14:20 10/29/21 14:00 10/29/21 14:00 10/29/21 14:20 Laboratory Results - last 24 hr 10/28/21 15:17: Troponin I < 0.01 10/28/21 18:22: Troponin I < 0.01 10/29/21 05:36: Total Bilirubin 0.6, Direct Bilirubin 0.0, Conjugated Bilirubin 0.0, Indirect Bilirubin 0.6, Unconjugated Bilirubin 0.6, AST 28 D, ALT 22, Alkaline Phosphatase 45, Total Protein 6.6, Albumin 3.7 D, Triglycerides 156 H, Cholesterol 213 H, LDL Cholesterol Direct 129.56 H, VLDL Cholesterol 31, HDL Cholesterol 36 L, Cholesterol/HDL Ratio 5.9 H 10/29/21 05:36: WBC 5.9, RBC 5.50, Hgb 15.8, Hct 48.3, MCV 87.8, MCH 28.7, MCHC 32.7, RDW 13.6, Plt Count 180, MPV 9.6, Neut % (Auto) 50.5, Lymph % (Auto) 38.6, [place] % (Auto) 7.6, Eos % (Auto) 2.1, Baso % (Auto) 1.2, Neut # (Auto) 3.0, Lymph # (Auto) 2.3, [place] # (Auto) 0.5, Eos # (Auto) 0.1, Baso # (Auto) 0.1 10/29/21 05:36: Sodium 138, Potassium 4.6, Chloride 106, Carbon Dioxide 28, Anion Gap 8.6, BUN 13, Creatinine 0.80, Estimated Creat Clear 108, Estimated GFR 100, Est GFR ( Amer) 121, Glucose 122 H D, Calcium 8.8 10/29/21 11:28: PT 11.0, INR 0.97 I & O for Last 24 hours: Intake & Output 10/26/21 10/27/21 10/28/21 10/29/21 23:59 23:59 23:59 23:59 Intake Total 497 / 857 1407 / 1407 Output Total 700 / 700 Balance 497 / 607 707 / 707 Weight 160 lb 4 oz 162 lb 10.866 oz - Constitutional no acute distress - *Routine HEENT Exam Head: Present: normocephalic Eye: Present: EOMI ENT: Present: mucous membranes moist - *Routine Neck Exam Present: trachea midline. Absent: tracheal deviation - *Routine Respiratory Exam Present: CTA bilaterally. Absent: accessory muscle use - *Routine Cardiovascular Exam Present: irregularly irregular - *Routine Abdominal Exam Present: soft, normoactive bowel sounds. Absent: tenderness, guarding, firm - *Routine Rectal Exam Rectal:: deferred - *Routine Genitalia Exam Genitalia:: deferred - *Routine Extremities Exam Present: full ROM, pulses intact. Absent: cyanosis, clubbing, edema - *Routine Skin Exam Present: intact, dry. Absent: cyanosis, erythema, jaundice - *Routine Neurological Exam Present: alert, oriented X3. Absent: motor deficit, altered mental status - Routine Psychiatric Exam Present: normal affect, normal thought process. Absent: visual hallucinations Hospital Course Hospital Course: 56-year
--- NOTE | 2021-11-01 14:01 | CARE MANAGER ---
CM will be unable to call and discuss post discharge status with patient, r/t no phone number on chart.
== END 2021-10-29 16:29 | disposition home or self-care (01) | DRG 310 ==
LOC: ER 13:27 → 2ND 14:58
PROVIDERS: Nurse Practitioner Family; Admitting Provider Family Medicine; Emergency Provider Emergency Medicine; Visit Provider Family Medicine
DX: I48.92 Unspecified atrial flutter (principal); K21.9 Gastro-esophageal reflux disease without esophagitis; R07.89 Other chest pain; Z95.2 Presence of prosthetic heart valve; I25.2 Old myocardial infarction; Z79.01 Long term (current) use of anticoagulants
CPT/HCPCS: 36415; 71045; 80048; 80053; 80061; 80076; 84484; 85025; 85610; 93005; 93306; 99285; C9803; U0003; U0005

== ENCOUNTER 2021-11-02 12:46 | Outpatient (CLI) | payer SELFPAY ==
[2021-11-02 15:36] LABS: PHA INR Fingerstick 1.4 (0.9-1.1)
== END 2021-11-02 15:39 | disposition home or self-care (01) ==
LOC: ACC 12:47
PROVIDERS: PCP Nurse Practitioner Family; Visit Provider Nurse Practitioner Family
DX: Z51.81 Encounter for therapeutic drug level monitoring (principal); Z79.01 Long term (current) use of anticoagulants
CPT/HCPCS: 85610; 99211; G0463

== ENCOUNTER 2021-11-05 14:55 | Outpatient (CLI) | payer SELFPAY ==
[2021-11-05 15:36] LABS: PHA INR Fingerstick 3.9 (0.9-1.1)
== END 2021-11-05 15:39 | disposition home or self-care (01) ==
LOC: ACC 14:56
PROVIDERS: Nurse Practitioner Family; PCP Family Medicine; Visit Provider Family Medicine
DX: Z51.81 Encounter for therapeutic drug level monitoring (principal); Z79.01 Long term (current) use of anticoagulants; I48.91 Unspecified atrial fibrillation
CPT/HCPCS: 85610; 99211; G0463

== ENCOUNTER 2021-11-12 15:19 | Outpatient (CLI) | payer SELFPAY ==
[2021-11-12 16:13] LABS: PHA INR Fingerstick 2.6 (0.9-1.1)
== END 2021-11-12 16:15 | disposition home or self-care (01) ==
LOC: ACC 15:19
PROVIDERS: PCP Nurse Practitioner Family; Visit Provider Family Medicine
DX: Z51.81 Encounter for therapeutic drug level monitoring (principal); Z79.01 Long term (current) use of anticoagulants
CPT/HCPCS: 85610; 99211; G0463

== ENCOUNTER 2024-12-26 10:55 | Day surgery (SDC) | payer SELFPAY ==
[2024-12-26] VITALS (8 sets, daily range): BP systolic 83–112; BP diastolic 50–80; PULSE 63–120; RESP 11–20; TEMP 36.6–36.7; O2SAT 90–98; BMI 26.2
--- NOTE | 2024-12-26 10:59 | ECG_ITS ---
APPROVED REPORT Exam: Resting ECG HR:107 bpm ECG Measurements Heart Rate 107 AXES QRSd 133 QRS -2 QT 338 T 72 QTc 401 Conclusion ATRIAL FLUTTER/TACHYCARDIA WITH RAPID VENTRICULAR RESPONSE RIGHT BUNDLE BRANCH BLOCK [120+ ms QRS DURATION, UPRIGHT V1, 40+ ms S IN I/aVL/V4/V5/V6] ABNORMAL ECG UNCONFIRMED REPORT Electronically signed by : Mando Martin, 12/26/2024 15:59:04
--- NOTE | 2024-12-26 11:13 | PC.NURSE ---
Dr. Martin @ bedside
--- NOTE | 2024-12-26 11:20 | XR_ITS ---
FINAL REPORT TECHNIQUE: Single view chest CLINICAL HISTORY: dyspnea COMPARISON: 10/28/2021 FINDINGS: A single view of the chest was obtained. Patient is status post median sternotomy. The heart and mediastinum are within normal limits. The lungs are clear. There is no pneumothorax. IMPRESSION: No acute cardiopulmonary process. Reviewed, Interpreted and Dictated by Grayson Quintana MD Transcribed by Stacie Carter Authenticated and [facility]
--- NOTE | 2024-12-26 11:26 | HMH.EDGENADL ---
Discharge Plan Disposition Patient Disposition: Home, Self-Care Prescriptions Prescriptions: No Action Xarelto 20 mg tablet 20 mg PO DAILY Qty: 30 2RF Rx Instructions: must administer with evening meal metoprolol succinate [Toprol XL] 50 mg tablet extended release 24 hr 50 mg PO DAILY Qty: 30 2RF Activity Restrictions/Add. Instructions Additional Instructions/Restrictions: You were discharged to go directly to an outpatient ALVERTO and cardioversion please follow their discharge instructions. Clinical Impressions Clinical Impression: Atrial flutter with rapid ventricular response, Chronic dyspnea Print Language Print Language: Panamanian Discharge ED Provider: Kenny Martin General Adult HPI General Chief complaint: Chest Pain Stated complaint: sent from cardiology Time Seen by Provider: 12/26/24 11:11 Mode of Arrival: Ambulatory Source of Information: Patient Description of Symptoms (Recalled from ER Triage Doc. by RN): Patient presents to ED from cardiology office with c/o CP and shortness of breath for appprox. 2 weeks. Was rx Xarelto recently for a-fib. History of Present Illness HPI narrative: Patient is a 59-year-old male being followed by our cardiology clinic for atrial flutter/A-fib with RVR recently started on metoprolol and Xarelto. Has been having increasing shortness of breath with exertion to the point where he cannot work normally. He denies any chest pain to me but told the office that he had some chest pain that been associated with his symptoms for 2 weeks. He was offered extensive workup and evaluation by the cardiology clinic at his last appointment which he refused aside from wanting an outpatient echo to be performed. Patient states he is minimally symptomatic at rest and would like to be back in a normal rhythm. Related Data Previous Rx's ?Medication ?Instructions ?Recorded rivaroxaban 20 mg tablet (Xarelto) 20 mg PO DAILY #30 tabs 12/12/24 metoprolol succinate 50 mg 50 mg PO DAILY #30 tabs 12/26/24 tablet,extended release 24 hr (Toprol XL) Allergies Allergy/AdvReac Type Severity Reaction Status Date / Time isosorbide AdvReac Verified 12/26/24 10:01 [facility] Disclaimer: The information contained in this section may have been updated after the patient was seen, as this information can be updated by other users. Medical History Abnormal ECG Afib Gastroesophageal reflux disease Chest pain Surgical History S/P TVR (tricuspid valve repair) Hx of mitral valve replacement Family History (Updated 12/26/24 @ 11:09 by Leonor Wade RN) Other No significant family history Social History Smoking Status: Former smoker alcohol intake: never substance use type: denies use current occupational status: other Travel in the last 8 weeks?: None household members: family housing: house Have you lived/traveled outside US in past 30 days?: No Contact w/someone who lives/traveled outside US past 30 days?: No Exposure to someone with infectious disease in past 14 days?: No Do you have a fever (greater than 100.4 F or 38 C)?: No Have you tested positive for COVID-19?: No Exposed to someone with COVID-19 in past 14 days?: No Do you have a sore throat?: No Do you have a cough?: No Do you have any weakness?: No Do you have any diarrhea?: No Are you experiencing any unusual bleeding?: No Do you have any muscle aches/pain?: No Do you have any abdominal pain?: No Are you experiencing loss of taste or smell?: No Other Medical History Have you received the Flu Vaccine for this season: No Have you received the Pneumonia Vaccine: No ROS Obtained: Yes All systems reviewed & no additional complaints except as documented Physical Exam General General appearance: alert and in no apparent distress Respiratory Respiratory exam: Present normal lung sounds bilaterally Cardiovascular Cardiovascular exam: Present tachycardia and irregular rhythm Neurological Exam Neurological exam: Present alert and oriented X3 Medical Decision Making Medical Records Screening: Per USPSTF and CDC recommendations, given the prevalence of disease in our region, it is our hospital?s policy to screen for HIV and viral Hepatitis for all patients aged 18 and over and those with ongoing risk factors. Mohamud Inquiry Pt receiving controlled substance: No Vital Signs: 12/26/24 11:00 12/26/24 11:00 12/26/24 11:05 Temperature 97.9 F 97.9 F Temperature Source Oral Pulse Rate 120 H 103 H Pulse Rate [Right] 120 H Respiratory Rate 18 18 20 Blood Pressure 109/78 L 105/80 L Blood Pressure [Left Arm] 109/78 L Blood Pressure Mean [Left Arm] 88 02 Sat by Pulse Oximetry 98 98 96 Oxygen Delivery Method Room Air 12/26/24 11:30 12/26/24 12:00 Temperature Temperature Source Pulse Rate 102 H 81 Pulse Rate [Right] Respiratory Rate 16 11 L Blood Pressure 112/80 108/79 L Blood Pressure [Left Arm] Blood Pressure Mean [Left Arm] 02 Sat by Pulse Oximetry 95 97 Oxygen Delivery Method Lab Data Lab results reviewed: Yes I reviewed the patient's lab results. Lab Results 12/26/24 11:05: WBC 7.2, RBC 5.12, Hgb 14.9, Hct 43.0, MCV 84.0, MCH 29.1, MCHC 34.7, RDW 12.6, Plt Count 194, MPV 11.0 H, Neut % (Auto) 56.1, Lymph % (Auto) 34.5, Anson % (Auto) 7.2, Eos % (Auto) 1.4, Baso % (Auto) 0.4, Neut # (Auto) 4.0, Lymph # (Auto) 2.5, Anson # (Auto) 0.5, Eos # (Auto) 0.1, Baso # (Auto) 0.0, Sodium 139, Potassium 4.5, Chloride 104, Carbon Dioxide 28, Anion Gap 11.5, BUN 16, Creatinine 0.80, Estimated Creat Clear 91, Estimated GFR 99, Est GFR ( Amer) 120, Glucose 84, Calcium 9.2, Magnesium 2.0, Total Bilirubin 0.5, AST 33, ALT 21, Alkaline Phosphatase 36 L, Troponin I < 0.01, NT-Pro-B Natriuret Pep 406 H, Total Protein 7.8, Albumin 4.5, Globulin 3.3 H, Albumin/Globulin Ratio 1.4, TSH 0.91 12/26/24 11:05 12/26/24 11:05 Orders (Tests/Meds): ED MEDICATIONS Discontinued Medications Generic Name Dose Route Start Last Admin Trade Name Freq PRN Reason Stop Dose Admin Metoprolol Tartrate 5 mg 12/26/24 11:21 12/26/24 11:32 Metoprolol Tartrate 5mg/5ml Vial IV 12/26/24 11:22 5 mg ONCE ONE Administration ORDERS Category Date Time Status CXR --portable [XR chest portable] Stat Exams 12/26/24 11:20 Completed POCUS Point of Care (ER Only) Stat Exams 12/26/24 11:20 Completed BNP [NT Pro Brain Natriuretic Pep.] Stat Lab 12/26/24 11:05 Completed CBC w/Auto Diff [Complete Blood Count Auto Diff] Stat Lab 12/26/24 11:05 Completed CMP [Comprehensive Metabolic Panel] Stat Lab 12/26/24 11:05 Completed Magnesium Stat Lab 12/26/24 11:05 Completed TSH [Thyroid Stimulating Hormone] Stat Lab 12/26/24 11:05 Completed Trop I [Troponin I] Stat Lab 12/26/24 11:05 Completed Troponin I Q3H Lab 12/26/24 14:30 Ordered Troponin I Q3H Lab 12/26/24 17:30 Ordered ECG Data Tracing #1: I reviewed this ECG and interpreted as documented below: Ventricular to 107 atrial flutter with rapid ventricular response no acute ischemic changes noted there is a nonspecific left axis deviation no other significant conduction abnormalities noted. Medical Decision Narrative: 59-year-old with above history and physical presenting today in atrial flutter with rapid ventricular response. He is minimally symptomatic at rest and his heart rate is between 100 and 110 we will give some IV metoprolol to get this down further. His heart rate is not elevated enough to where he is having significant decrease in his cardiac output but he is also minimally symptomatic at the moment. 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 Will get his rate under control while here in the ED and rule out any other emergent medical condition such as significant heart failure or electrolyte abnormalities acute coronary syndrome pulmonary embolism etc. Chest x-ray performed I personally interpreted which shows no evidence of an acute cardiopulmonary emergency. Reassessment 1:20 PM patient's labs are stable. He felt much better after some rate control with IV metoprolol however he was still in atrial flutter. He asked what next given the fact that he came into cardiology clinic and has some transportation difficulties I spoke with Dr. Melvin about this case. Patient would really like to be back in normal rhythm and get back to work he states. Therefore Dr. Melvin offered for him to have a ALVERTO and cardioversion which he agreed to. Patient was discharged from the emergency department and was taken directly to an outpatient procedure to be further managed by the cardiology team. Critical Care Critical Care Time Critical Care Time: Yes Attestation: On 12/26/24, the high probability of a clinically significant, sudden or life threatening deterioration of the following system(s) required my full and direct attention, intervention and personal management. The time I documented below is in addition to time spent performing reported procedures but includes the following listed in this critical care notation. Total Time Total Critical Care Time: 35
[2024-12-26 11:29] LABS: Hematocrit 43.0 % (42.0-52.0); Hemoglobin 14.9 g/dL (14.1-18.0); Immature Granulocytes % 0.4 %; Mean Corpuscular HGB Conc 34.7 g/dL (31.8-35.4); Mean Corpuscular Hemoglobin 29.1 pg (27.0-31.2); Mean Corpuscular Volume 84.0 fl (80-94); Nucleated Red Blood Cells % 0 %; Platelet Count 194 K/mm3 (142-424); Red Blood Count 5.12 M/mm3 (4.60-6.20); Red Cell Distribution Width-SD 38.0 fL; White Blood Count 7.2 K/mm3 (4.8-10.8)
[2024-12-26] MEDS: METOPROLOL TARTRATE 5MG/5ML VIAL 5 MG IV (11:32)
[2024-12-26 11:33] LABS: Alanine Aminotransferase 21 U/L (12-78); Albumin Level 4.5 g/dl (3.5-5.0); Albumin/Globulin Ratio 1.4 (1.1-1.8); Alkaline Phosphatase 36 U/L (38-126); Anion Gap 11.5 mEq/L (5-15); Aspartate Amino Transferase 33 U/L (17-59); Bilirubin,Total 0.5 mg/dl (0.2-1.3); Blood Urea Nitrogen 16 mg/dl (9-20); Calcium 9.2 mg/dl (8.4-10.2); Carbon Dioxide 28 mmol/L (22.0-30.0); Chloride 104 mmol/L (98-107); Creatinine Clearance Estimated 91 mL/min (50-200); Creatinine,Serum 0.80 mg/dl (0.66-1.25); Estimated Glomerular Filt Rate 99 ml/min (>60); GFR (African American) 120 ML/MIN (>60); Globulin 3.3 g/dL (1.3-3.2); Glucose 84 mg/dl (74-100); Magnesium 2.0 mg/dl (1.6-2.3); Potassium 4.5 mmoL/L (3.5-5.1); Sodium 139 mmol/L (136-145); Total Protein,Serum 7.8 g/dl (6.3-8.2)
[2024-12-26 11:45] LABS: NT Pro Brain Natriuretic Pep. 406 pg/mL (0-125)
[2024-12-26 11:51] LABS: Troponin I < 0.01 ng/ml (0.00-0.034)
--- NOTE | 2024-12-26 11:52 | PC.NURSE ---
1132- 5mg of IV metoprolol given per JUL. 1137- rounded on patient, patients Heart rate in high 80's- low 90's. 1150- patients heart rate in the 70's/80's now.
[2024-12-26 12:04] LABS: Thyroid Stimulating Hormone 0.91 uIU/mL (0.465-4.68)
--- NOTE | 2024-12-26 13:10 | PC.NURSE ---
1233- cardiology as bedside
--- NOTE | 2024-12-26 13:29 | PC.NURSE ---
preop staff at bedside to take patient up to outpatient surgery for a ALVERTO with cardioversion.
--- NOTE | 2024-12-26 13:51 | EXP.ANES.CKL ---
[facility] Disclaimer: The information contained in this section may have been updated after the patient was seen, as this information can be updated by other users. Medical History Abnormal ECG Afib Gastroesophageal reflux disease Chest pain Surgical History S/P TVR (tricuspid valve repair) Hx of mitral valve replacement Family History (Updated 12/26/24 @ 11:09 by Leonor Wade RN) Other No significant family history Social History Smoking Status: Former smoker alcohol intake: never substance use type: denies use current occupational status: other Travel in the last 8 weeks?: None household members: family housing: house Have you lived/traveled outside US in past 30 days?: No Contact w/someone who lives/traveled outside US past 30 days?: No Exposure to someone with infectious disease in past 14 days?: No Do you have a fever (greater than 100.4 F or 38 C)?: No Have you tested positive for COVID-19?: No Exposed to someone with COVID-19 in past 14 days?: No Do you have a sore throat?: No Do you have a cough?: No Do you have any weakness?: No Do you have any diarrhea?: No Are you experiencing any unusual bleeding?: No Do you have any muscle aches/pain?: No Do you have any abdominal pain?: No Are you experiencing loss of taste or smell?: No [facility] Anesthesia Checklist Patient Identification Patient Identification: Arm Band Structural Data Admitted From: Emergency Dept Planned Operative Procedure/s: ALVERTO/Cardioversion Consent for Planned Operative Procedure(s) Verified: Yes Verified Documents: Surgical Consent and History and Physical NPO Status Verified Time NPO: 07:30 (light breakfast) Additional verifications Anesthesia Reactions: No Airway Assessment Mallampati Score:: Class II C-Spine Mobility Assessed: Yes TMJ Mobility Assessed: Yes Dentition: Good Dentition (upper dentures removed) Neurological Assessment Level of Consciousness: Awake and Alert Anesthesia Plan Anesthesia Risk discussed: Yes Anesthesia Plan: Verified ASA Class: III Anesthesia Type: MAC
--- NOTE | 2024-12-26 13:57 | CA_ITS ---
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 Type of Sedation : MAC Sedation start time: 14:40 Case end Time: 14:45 Transesophageal probe was inserted and advanced into esophagus without difficulty by Dr. Cipriano Vernon. The ALVERTO was performed without complications. Synchronized Cardioversion acheived with 150 Joules after 1 attempt(s). Rhythm following Synchronized Cardioversion: Normal Sinus Rhythm Throughout the procedure, the blood pressure, pulse oximetry, cardiac rhythm, and rate were monitored. The patient tolerated the procedure without adverse effects. Recovery from conscious sedation was uneventful and vital signs were stable. Left Ventricle The left ventricle is normal size. The left ventricular systolic function is low-normal. There is normal left ventricular wall thickness. There is normal LV segmental wall motion. LVEF is 50%. Right Ventricle Right ventricle is mildly dilated. The right ventricular systolic function is normal. Atria Left atrium is mildly dilated. No thrombus is visualized in the left atrium or appendage. Right atrium is mildly dilated. Interatrial septum is intact without evidence of ASD or PFO. Aortic Valve The aortic valve is trileaflet. The aortic valve opens well. There is no aortic valvular stenosis. Trace aortic regurgitation is present. Mitral Valve s/p bioprosthetic MVR. The prosthesis is well-seated. No evidence of mitral valve stenosis. Mean MV gradient 5 mmHg (HR 75 bpm). No evidence of thrombus or vegetations. Trace central mitral regurgitation. Tricuspid Valve s/p tricuspid repair with ring annuloplasty. Trace tricuspid regurgitation. There is no tricuspid valve vegetations. Pulmonic Valve The pulmonary valve is normal in structure. Trace pulmonic regurgitation. Great Vessels The aortic root is normal in size. The ascending aorta is normal in size. Pericardium There is no pericardial effusion. Other Information Study Quality: Fair Conclusion Low normal LV systolic function. Mild RV dilation with normal RV function. Mild biatrial dilation. s/p bioprosthetic MVR. No significant MR. s/p TV repair with annuloplasty ring. No significant TR. The patient underwent ALVERTO / DCCV. Once ALVERTO demonstrated no evidence of LA or ENDER thrombus, he underwent successfully DCCV with 150 J, after which his rhythm converted from Aflutter to NSR. He remained asymptomatic post procedurally, and was eventually discharged in stable condition. He was instructed to continue his home meds, including daily anticoagulation with rivaroxaban. Electronically signed by : Tila Vernon MD 12/27/2024 19:14:55
--- NOTE | 2024-12-26 14:24 | ECG_ITS ---
APPROVED REPORT Exam: Resting ECG HR:78 bpm ECG Measurements Heart Rate 78 AXES QRSd 126 QRS -11 QT 407 T 48 QTc 441 Conclusion ATRIAL FLUTTER/TACHYCARDIA POSSIBLE RIGHT VENTRICULAR CONDUCTION DELAY [RSR (QR) IN V1/V2] ABNORMAL ECG UNCONFIRMED REPORT Electronically signed by : Nelson Marvin MD 12/27/2024 08:06:22
--- NOTE | 2024-12-26 14:48 | ECG_ITS ---
APPROVED REPORT Exam: Resting ECG HR:67 bpm ECG Measurements Heart Rate 67 AXES UT 143 P 72 QRSd 128 QRS -12 QT 436 T 20 QTc 452 Conclusion SINUS RHYTHM RIGHT BUNDLE BRANCH BLOCK [120+ ms QRS DURATION, UPRIGHT V1, 40+ ms S IN I/aVL/V4/V5/V6] ABNORMAL ECG UNCONFIRMED REPORT Electronically signed by : Nelson Marvin MD 12/27/2024 08:06:07
--- NOTE | 2024-12-26 14:59 | SUR.OPER ---
1432- pt shocked 150j--converted to NSR v.o. for repeat EKG in post to confirm
== END 2024-12-26 15:09 | disposition home or self-care (01) ==
LOC: ER 13:19 → SDC 13:58
PROVIDERS: Internal Medicine; Emergency Provider Student in an Organized Health Care Education/Training Program; Visit Provider Surgery
PROC: (CPT 93312; principal; 2024-12-26 14:00)
DX: I48.92 Unspecified atrial flutter (principal); I45.10 Unspecified right bundle-branch block; I08.3 Combined rheumatic disorders of mitral, aortic and tricuspid valves; Z79.01 Long term (current) use of anticoagulants; Z79.899 Other long term (current) drug therapy; Z88.8 Allergy status to other drugs, medicaments and biological substances; R06.00 Dyspnea, unspecified; R94.31 Abnormal electrocardiogram [ECG] [EKG]; I48.91 Unspecified atrial fibrillation; K21.9 Gastro-esophageal reflux disease without esophagitis; Z95.2 Presence of prosthetic heart valve; Z87.891 Personal history of nicotine dependence
CPT/HCPCS: 92960; 71045; 80053; 83735; 83880; 84443; 84484; 85025; 93005; 93270; 93312; 93319; 99285; J2003; J2704